=== PATIENT | male | born 1970 | race Caucasian/White ===

== ENCOUNTER 2025-01-03 09:18 | Day surgery (SDC) | payer SELFPAY ==
[2025-01-03] VITALS (9 sets, daily range): BP systolic 96–129; BP diastolic 45–72; PULSE 40–94; RESP 16–20; TEMP 36.1–36.6; O2SAT 93–100; BMI 31.6
--- NOTE | 2025-01-03 09:48 | EKG12_ITS ---
Test Reason : PRE OP Blood Pressure : */* mmHG Vent. Rate : 47 BPM Atrial Rate : 47 BPM P-R Int : 146 ms QRS Dur : 86 ms QT Int : 442 ms P-R-T Axes : 22 44 29 degrees QTcB Int : 391 ms Sinus bradycardia Otherwise normal ECG No previous ECGs available Confirmed by Jose Gallegos ([id number]), web editor YONATHAN FRANK ([id number]) on 01/04/2025 5:49:16 AM Referred By: Bulmaro Barlow Confirmed By: Jose Gallegos
--- NOTE | 2025-01-03 09:56 | PCM.PRE.AN2 ---
ASA Classification* ASA Classification ASA Classification: 2 Assessment & Plan Anesthesia* Anesthesia Assessment Anesthesia Assessment: Discussed sedation and/or anesthesia options, risks, benefits, and alternatives with patient/parents/legal guardian/POA. Questions invited. The patient/parents/legal guardian/POA seems to understand and agrees to proceed with anesthesia plan. Reviewed the physical assessment, medical history, allergy history and patient home medications list prior to surgery/procedure/anesthetic and documented any changes. Performed airway and anesthesia risk assessments. 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 When Was Last Pacemaker Check QUESTION #4 FULL TEXT: You/Your Family Experience fever (hyperthermia) with Anesthesia Last Oral Intake Last Oral intake: Last Oral Intake NPO since 20:30 01/03/25 09:51 Meds taken in AM with sips of water? Meds patient instructed to take am of surgery PONV PONV - employee relations director: PONV - employee relations director Female No 12/29/24 11:22 HX of Motion Sickness No 12/29/24 11:22 HX of N/V After Surgery No 12/29/24 11:22 Non-Smoker Yes 12/29/24 11:22 Duration of Surgery greater Yes 12/29/24 11:22 than 60 minutes Number of Risk Factors 2 12/29/24 11:22 PONV Score Moderate Risk 12/29/24 11:22 Height & Weight Height & Weight: Anesthesia: Height & Weight Height 5 ft 10 in 01/03/25 09:51 Weight: 99.8 kg 01/03/25 09:51 Body Mass Index (BMI) 31.6 01/03/25 09:51 Respiratory Assessment Respiratory Assessment - employee relations director: Respiratory Tract Infection Hx - employee relations director Hx Respiratory Tract Infection No 12/29/24 11:22 STOP Sleep Apnea STOP Sleep Apnea - employee relations director: STOP Sleep Apnea - employee relations director Hx Hypertension No 12/29/24 11:22 Hx Sleep Apnea No 12/29/24 11:22 CPAP BIPAP Do you snore loudly (louder Yes 12/29/24 11:22 than talking or can be heard Do you often feel tired/ No 12/29/24 11:22 fatigued/ sleepy during daytime? Has anyone observed you stop No 12/29/24 11:22 breathing during sleep? STOP Results Negative 12/29/24 11:22 QUESTION #5 FULL TEXT : Do you snore loudly (louder than talking or can be heard through closed doors)? 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 Specify any problems Hx of Preganancy in last 3 N/A 12/29/24 11:22 Months Nurse Filling Out Transfusion DSCHRIBER 12/29/24 11:22 & Questions: Date: 12/29/24 12/29/24 11:22 Time: 11:24 12/29/24 11:22 Patient unable to answer at this time (ie. confused, unrespo /Reproduction History /Reproductive History - employee relations director: /Reproductive Hx- employee relations director Hx Now No 12/29/24 11:22 Gestational Age (in weeks): EDC: Hx Hx Para Hx Section SAB No 12/29/24 11:22 Active Medications Active Medications: Current Medications Generic Name Dose Route Start Last Admin Trade Name Vita PRN Reason Stop Dose Admin Cefazolin Sodium 2 gm/ Sodium 110 mls @ 200 mls/hr 01/03/25 11:00 Chloride IV 01/03/25 11:32 INTRAOP ONE Lactated Ringer's 1,000 mls @ 15 mls/hr 01/03/25 09:30 IV .Q48H BLAKE PFSH Medical History Wears glasses Broken teeth Anxiety Arthritis Back pain Syncope Non-smoker Inguinal hernia of left side without obstruction or gangrene Depression Obesity Home Medications ?Medication ?Instructions ?Recorded ?Last Taken ?Type REPLENIX 2 tab PO DAILY 12/29/24 Unknown History SEISMIC 6 1 packet PO DAILY 12/29/24 Unknown History beta-sitosterol 125 mg-vit D3 10 2 tab PO DAILY 12/29/24 Unknown History zzs-ejlzwqgo-gelhpcydi 250 mg tablet (Prostate Max Plus) fluoxetine 20 mg capsule 40 mg PO DAILY 12/29/24 Unknown History vitamin C 500 mg-multivitamin with 2 tab PO QDAY 12/29/24 Unknown History minerals chewable tablet (Emergen-C) Allergy/AdvReac Type Severity Reaction Status Date / Time No Known Allergies Allergy Verified 01/03/25 09:50 Family History Other Arthritis Surgical History Hx of right knee surgery History of knee surgery Social History Smoking Status: Never smoker Review of Systems (Anesthesia) ROS Narrative System reviewed and no additional complaints, except as documented.
[2025-01-03] MEDS: Lactated Ringers 1,000 ML 15 ML IV (09:59)
--- NOTE | 2025-01-03 10:13 | HP.PCM_ITS ---
History and Physical Date of Admission: 01/03/25 Intake Vital Signs 12/24/2507:35 Height 5 ft 10 in Weight: 224 lb BMI 32.1 BP 115/74 Blood Pressure Location Rt brachial Position Sitting Respiration 18 Pulse 53 L Pulse Source Monitor Temp 98.0 F Temp Source Temporal Intake Visit Reasons: SELF PAY-LEFT INGUINAL HERNIA Chief Complaint: Possible Left Inguinal Hernia Glacing Machine Tender Required: No Is patient in pain?: No Allergies No Known Allergies Allergy (Unverified 12/23/24 08:54) Medications ?Medication ?Instructions ?Recorded ?Confirmed ?Type fluoxetine 40 mg capsule 40 mg PO QDAY 12/23/24 12/23/24 History Have you fallen in the past year?: No PFSH Medical History (Updated 12/23/24 @ 09:[address] Bulmaro Barlow MD) Inguinal hernia of left side without obstruction or gangrene Depression Obesity Hypertension Surgical History (Updated 12/23/24 @ 08:52 by Nyasia Hawkins) History of knee surgery Family History (Updated 12/23/24 @ 08:53 by Nyasia Hawkins) Other Arthritis HPI HPI HPI: Patient is a 54-year-old male with left inguinal hernia. The patient reports this has been like this for about 2 years. He is able to push it back in. He denies nausea or vomiting or fevers or chills. He denies any symptoms on the opposite side. ROS General General: No weight change, appetite, fatigue, colon cancer, breast cancer or weakness HEENT HEENT: No difficulty swallowing, eye injury, eye surgery, swollen glands or hoarseness Endo Endocrine: No thyroid disease, diabetes mellitus, thyroid cancer, Hair loss, heat intolerance or cold intolerance Skin Skin: No rash or changing moles Breast Breast: No left breast lump, right breast lump, nipple discharge, breast pain, abnormal mammogram, abnormal US or breast enlargement Musc Musculoskeletal: Yes back problems and arthritis; No rheumatoid arthritis, gout or joint pain Cardio Cardiovascular: No murmur, pacemaker, heart disease, atrial fibrillation, high blood pressure, heart attack, heart stent, palpitations, shortness of breath with exertion or chest pain Psych Psychiatric: Yes depression; No anxiety or hearing voices Resp Respiratory: No shortness of breath, No sleep apnea, No cough, No COPD, No asthma, No emphysema and No wheezing Gastro Gastrointestinal: No abdominal pain, No nausea or vomiting, No diarrhea, No constipation, No blood in stool, No acid reflux, No hemorrhoids, No ulcers, No gallbladder problem and No black,tarry stools Carlos Hematologic: No blood thinners, No blood disorders, No bleeding, No anemia and No blood clots Neuro Neurologic: No system reviewed and no additional complaints, except as documented, No as per HPI, No abnormal gait, No abnormal hearing, No abnormal movements, No abnormal speech, No behavioral changes, No burning sensations, No confusion, No convulsions, No disequilibrium, No dizziness, No localized weakness, No frequent falls, No headache(s), No lack of coordination, No loss of vision, No memory loss, Yes numbness, No other visual disturbances, No radicular pain, No restless legs, No sensory deficit, No syncope, Yes tingling, No tremor(s), No weakness and No other Exam Const General: cooperative Orientation: alert and oriented x3 HENMT Head: normal to inspection Neck Neck: normal visual inspection and full ROM Chest Chest palpation & inspection: normal inspection of the chest Resp Effort & Inspection: normal respiratory effort Auscultation: clear to auscultation bilaterally Cardio Rate: regular rate Rhythm: regular rhythm GI Inspection: non-distended Palpation: soft, hernia indirect inguinal on the left and nontender Skin General: no rashes or lesions noted Neuro General: patient alert and patient oriented x3 Extrem General: full ROM Psych Appearance: grossly normal Mental Status: mental status grossly normal Assessment and Plan Assessment and Plan (1) Inguinal hernia of left side without obstruction or gangrene: Status: Acute Plan: I discussed robotic assisted laparoscopic left inguinal hernia repair with mesh. I discussed the procedure in detail. I discussed the risks including but not limited to bleeding, infection, chronic groin pain, injury to underlying organ such as the bowel, bladder, blood supply to the testicle. Patient understands the risks and is willing to proceed. Bulmaro Barlow MD Pager: [facility] [address] [place] [address], [address] [place] [address] Office: I have examined the patient and the H&P has been reviewed. There are no clinical changes since date of exam.
[2025-01-03] MEDS: Lactated Ringers 1,000 ML 1000 ML IV (10:44)
[2025-01-03] MEDS: Midazolam 2 MG/2 ML Syringe IV (10:44)
[2025-01-03] MEDS: Cefazolin 1 GM/5 ML Vial 2 GM IV (10:50)
[2025-01-03] MEDS: Lidocaine 1% (5 ml sdv) 5 ML Vial IV (10:54)
[2025-01-03] MEDS: fentaNYL 100 MCG/2 ML Ampul IV (10:54)
--- OUTSIDE RECORDS SUMMARY | 2025-01-03 11:37 | XMS RPT_ITS | CCD ---
Author Organization [facility] Care Team Providers Care Installment Agent Name Role Phone WINDY JEREZ Unavailable Unavaila ble WINDY JEREZ A Unavailable Unavaila ble HARPAL YANG DC Attending Unavailable HARPAL YANG DC Primary Care Unavailable HARPAL YANG DC Admitting Unavailable Clement ENGINEERING PROGRAM ANALYST-C, Rosalai Brown Primary Care Provider Clement ENGINEERING PROGRAM ANALYST-C, Rosalia Brown Referring Provider [phone] Yen ROBERTS, Dr. Chamberlain Attending Provider Bulmaro Barlow Attending Unavailable Clement ENGINEERING PROGRAM ANALYST, Rosalia Brown Referring Unavaildalia e Clement ARMIJO, Rosalia Brown Primary Care Unavaildalia e Bulmaro Barlow Attending Unavailable Clement ARMIJO, Rosaliagokul Brown Primary Care Unavaildalia e Medications Current Medications Medication Drug Class(es) Dates Sig (Normalized) Sig (Original) FLUoxetine 40 mg oral capsule (1 source) Serotonin Reuptake Inhibitor Start: 12-23-2024 take 1 capsule by mouth once daily Fluoxetine 40 mg capsule Active 40 mg PO daily December 23, 2024 12:00am Problems Active Problems Problem Classification Problem Date Documented Da te Episodic/Chronic Unclassified (1 source) Unknown / UNK(Unknown) Onset: 01-27-2018 Past or Other Problems Problem Classification Problem Date Documented Da te Episodic/Chronic Unclassified (1 source) LEFT HAND SWELLING WITH REDNESS Onset: 01-27-2018 Results Test Name Value Interpretation Reference Range Facil ity Surgery Visit Reporton 12-23 Surgery Visit Report [facility] [address] [place], [place] [id number] OFFICE VISIT Date of Service: 12/23/24 MR#: [id number] Acct: [id number] Name: MELANIE MATTHEW Rep #: [id number] : 1970 Provider: Dr. Bulmaro hermosillo MD Age/Sex: 54/M Location: [facility] Status: Signed Intake Vital Signs 12/23/24 08:35 Height 5 ft 10 in Weight: 224 lb BMI 32.1 BP 115/74 Blood Pressure Location Rt brachial Position Sitting Respiration 18 Pulse 53 L Pulse Source Monitor Temp 98.0 F Temp Source Temporal Intake Visit Reasons: SELF PAY-LEFT INGUINAL HERNIA Chief Complaint: Possible Left Inguinal Hernia Mammal Control Agent Required: No Is patient in pain?: No Allergies No Known Allergies Allergy (Unverified 12/23/24 08:54) Medications ???Medication ???Instructions ???Recorded ???Confirmed ???Type fluoxetine 40 mg capsule 40 mg PO QDAY 12/23/24 12/23/24 Hi story Have you fallen in the past year?: No PFSH Medical History (Updated 12/23/24 @ 09:[address] Bulmaro Barlow MD) Inguinal hernia of left side without obstruction or gangrene Depression Obesity Hypertension Surgical History (Updated 12/23/24 @ 08:52 by Nyasia Hawkins) History of knee surgery Family History (Updated 12/23/24 @ 08:53 by Nyasia Hawkins) Other Arthritis HPI HPI HPI: Patient is a 54-year-old male with left inguinal hernia. The patient reports this has been like this for about 2 years. He is able to push it back in. He denies nausea or vomiting or fevers or chills. He denies any symptoms on the opposite side. ROS General General: No weight change, appetite, fatigue, colon cancer, breast cancer or weakness HEENT HEENT: No difficulty swallowing, eye injury, eye surgery, swollen glands or hoarseness Endo Endocrine: No thyroid disease, diabetes mellitus, thyroid cancer, Hair loss, heat intolerance or cold intolerance Skin Skin: No rash or changing moles Breast Breast: No left breast lump, right breast lump, nipple discharge, breast pain, abnormal mammogram, abnormal US or breast enlargement Musc Musculoskeletal: Yes back problems and arthritis; No rheumatoid arthritis, gout or joint pain Cardio Cardiovascular: No murmur, pacemaker, heart disease, atrial fibrillation, high blood pressure, heart attack, heart stent, palpitations, shortness of breath with exertion or chest pain Psych Psychiatric: Yes depression; No anxiety or hearing voices Resp Respiratory: No shortness of breath, No sleep apnea, No cough, No COPD, No asthma, No emphysema and No wheezing Gastro Gastrointestinal: No abdominal pain, No nausea or vomiting, No diarrhea, No constipation, No blood in stool, No acid reflux, No hemorrhoids, No ulcers, No gallbladder problem and No black,tarry stools Carlos Hematologic: No blood thinners, No blood disorders, No bleeding, No anemia and No blood clots Neuro Neurologic: No system reviewed and no additional complaints, except as documented, No as per HPI, No abnormal gait, No abnormal hearing, No abnormal movements, No abnormal speech, No behavioral changes, No burning sensations, No confusion, No convulsions, No disequilibrium, No dizziness, No localized weakness, No frequent falls, No headache(s), No lack of coordination, No loss of vision, No memory loss, Yes numbness, No other visual disturbances, No radicular pain, No restless legs, No sensory deficit, No syncope, Yes tingling, No tremor(s), No weakness and No other Exam Const General: cooperative Orientation: alert and oriented x3 [facility] Head: normal to inspection Neck Neck: normal visual inspection and full ROM Chest Chest palpation inspection: normal inspection of the chest Resp Effort Inspection: normal respiratory effort Auscultation: clear to auscultation bilaterally Cardio Rate: regular rate Rhythm: regular rhythm GI Inspection: non-distended Palpation: soft, hernia indirect inguinal on the left and nontender Skin General: no rashes or lesions noted Neuro General: patient alert and patient oriented x3 Extrem General: full ROM Psych Appearance: grossly normal Mental Status: mental status grossly normal Assessment and Plan Assessment and Plan (1) Inguinal hernia of left side without obstruction or gangrene: Status: Acute Plan: I discussed robotic assisted laparoscopic left inguinal hernia repair with mesh. I discussed the procedure in detail. I discussed the risks including but not limited to bleeding, infection, chronic groin pain, injury to underlying organ such as the bowel, bladder, blood supply to the testicle. Patient understands the risks and is willing to proceed. Bulmaro Barlow MD Pager: [facility] [address] [place] [address], [address] (more content not included)... Normal [facility] MR LUMBAR SP WO CONTRASTon 0 07-09-2024 MR LUMBAR SP WO CONTRAST [place] [id number] [place] [address] Patient: MELANIE MATTHEW Phone#: : 1970 Age: 54 Gender: M Pt. Type: Out Account: [id number] Location: Ordering: HRAPAL SEGOVIASARAH Exam Date: 07/09/2024/13:02 Family Phys: Charge Code: [id number] Physician: [place] Order #: [id number] Dose#: PROCEDURE: MRI LUMBAR SPINE WITHOUT CONTRAST COMPARISON: None. INDICATIONS: Low back pain TECHNIQUE: A variety of imaging planes and parameters were utilized for visualization of suspected pathology. FINDINGS: PARASPINAL AREA: Normal with no visible mass. Multiple cystic foci at the renal pelvis are present consistent with peripelvic cysts. BONES: No fracture, pars defect, or osseous lesion. CORD/CAUDA EQUINA: Normal caliber, contour, and signal intensity. LUMBAR DISC LEVELS: Mild broad-based bulge is present to the left of midline at the T12-L1 level. L1-L2: No significant disc/facet abnormality, spinal stenosis, or foraminal stenosis. L2-L3: Broad-based dorsal disc bulge is present. There is mild narrowing of the right neural foramen. Bright signal dorsally is consistent with annular rupture. There is mild narrowing of the left neural foramen. The spinal canal is normal in caliber. L3-L4: Broad-based annular disc bulging is present more so to the right. There is moderate right foraminal narrowing. There is mild left foraminal narrowing. The spinal canal is patent. L4-L5: No significant disc/facet abnormality, spinal stenosis, or foraminal stenosis. L5-S1: Broad-based central bulge is present. There is mild right foraminal narrowing. There is moderate left foraminal narrowing. CONCLUSION: 1. Peripelvic cysts are present. 2. Broad-based disc bulging is present to the left of midline at T12-L1. 3. Broad-based disc bulging is present greater to the right. Dictated by: Lina Arriaga MD on 07/09/2024 at 16:41 Approved by: Lina rAriaga MD on 07/09/2024 at 16:48 Normal [facility] FCHAND 3 VIEWSon 01-27-2018 FCHAND [address] [id number]: MELANIE MATTHEW LPhys: WINDY JEREZ C.N.P.: [birth year] Age: 47 Sex: MAcct: [id number] Loc: FCExam Date: 01/27/18 Status: REG POVRadiology No.: [id number] Number: [id number] # [id number] [facility] / FCHAND 3 VIEWS LTEXAM: Left hand 3 views 01/27/2018INDICATION: Swelling with redness, possible foreign bodyCOMPARISON: NoneFINDINGS: Skin marker has been placed at the site of clinical concern, palmaraspect of hand, at metacarpal level. There is no acute fracture ordislocation. There is no soft tissue foreign body or gas. There is chronicirregularity of the tuft of third distal phalanx.IMPRESSION: No radiopaque foreign body identified.Professional interpretation provided by [facility]60.Thank you for this referral.< >Reported By: DEBBY CANELA M.D.Signed In NovaPro By: DEBBY CANELA M.D. << Signature on File>> Reported By: DEBBY CANELA M.D. Signed By: DEBBY CANELA M.D.Tests performed at:[address] [phone] [facility] Vital Signs Date Time Vital Sign Value Performing Clinician Aly gonzalez 12-23-2024 08:35-0400 Body height 177.8 cm Rosalia OROURKE Work Phone: [facility] 12-23-2024 08:35-0400 Body mass index (BMI) [Ratio] 32.1 kg/m2 Rosalia OROURKE Work Phone: [facility] 12-23-2024 08:35-0400 Body temperature 98 [degF] Rsoalia Vaughan ENGINEERING PROGRAM ANALYST-C Work Phone: [facility] 12-23-2024 08:35-0400 Body weight 101.6 kg Rosalia Vaughan ENGINEERING PROGRAM ANALYST-C Work Phone: [facility] 12-23-2024 08:35-0400 Diastolic blood pressure 74 mm[Hg] Rosalia Vaughan ENGINEERING PROGRAM ANALYST-C Work Phone: [facility] 12-23-2024 08:35-0400 Heart rate 53 /min Rosalia Vaughan ENGINEERING PROGRAM ANALYST-C Work Phone: [facility] 12-23-2024 08:35-0400 Respiratory rate 18 /min Rosalia Vaughan ENGINEERING PROGRAM ANALYST-C Work Phone: [facility] 12-23-2024 08:35-0400 Systolic blood pressure 115 mm[Hg] Rosalia Vaughan ENGINEERING PROGRAM ANALYST-C Work Phone: [facility] Encounters Encounter Date Encounter Type Care Provider Facility Start: 01-03-2025 ambulatory Bulmaro Lu lity:[facility] Start: 12-23-2024 End: 12-23-[address] Bulmaro Barlow MD -[facility] Work Phone: Start: 12-23-2024 End: 12-23-2024 ambulatory Rosalia Vaughan ENGINEERING PROGRAM ANALYST-C Work Phone: -[facility] Start: 07-09-2024 End: 07-09-2024 ambulatory HARPAL DAVIS [facility] Start: 01-27-2018 Patient encounter -RAJI BURCIAGA Facility:[facility] Payers Date Payer Category Payer Self-pay 1970 Unknown [id number] Self-pay [id number] Unknown [id number] Unknown Unknown [id number] Unknown [id number] [id number] Social History Date Type Detail Facility Tobacco smoking stat us NHIS Unknown if ever smoked [facility] Work Phone: Start: 1970 [facility] Evaluation note Note Date & Type Note Facility Evaluation note No assessment information availa ble [facility] Work Phone: Reason for referral (narrative) Note Date & Type Note Facility Reason for referral (narrative) No reason for referral information available [facility] Work Phone: Summary Purpose Family History No Family History Records Found Relationship Condition Age at Onset Recorded Date/T kami Not Specified Arthritis Unknown Advance Directives No Advanced Directives Records FoundNo Advanced Directives Records FoundNo Advanced Directives Records Found Chief Complaint and Reason for Visit Chief Complaint Admit Date SELF PAY-LEFT INGUINAL HERNIA December 23, 2024 8:31am Additional Source Comments (unrecognized sect ion and content) No Status Records FoundNo Status Records FoundNo Status Records Found INFORMATION SOURCE (unrecogn ized section and content) DATE CREATED AUTHOR 02/21/2018 [facility] DATE CREATED AUTHOR AUTHOR'S ORGANIZ ATION 07/12/2024 [facility] DATE CREATED AUTHOR AUTHOR'S ORGANIZ ATION 12/31/2024 [facility] Care Teams (unrecognized sec tion and content) Team Status: Active Member Role/Relationship Status Dates Rosalia Vaughan NP, ENGINEERING PROGRAM ANALYST-C Primary Care Provider Activ e Team Status: Inactive Member Role/Relationship Status Dates Rosalia Vaughan NP, ENGINEERING PROGRAM ANALYST-C Primary Care Provider Activ e Start: December 23, 2024 End: December 23, 2024 Rosalia Vaughan NP, ENGINEERING PROGRAM ANALYST-C Referring Provider Active Start: December 23, 2024 End: December 23, 2024 Dr. Bulmaro Barlow MD Attending Provider Active Start: December 23, 2024 End: December 23, 2024 Goals (unrecognized section and content) Goals may be documented in a n alternate section FOR RECORDS PERTAINING TO PATIENTS WHO ARE OR HAVE BEEN ENROLLED IN A CHEMICAL DEPENDENCY/SUBSTANCEABUSE PROGRAM, SOME INFORMATION MAY BE OMITTED. This clinical summary was aggregated from multiple sources. Caution should be exercised in using it in the provision of clinical care. This summary normalizes information from multiple sources, and as a consequence, information in this document may materially change the coding, format and clinical context of patient data. In addition, data may be omitted in some cases. CLINICAL DECISIONS SHOULD BE BASED ON THE PRIMARY CLINICAL RECORDS. [facility] [employer] [facility]. provides no warranty or guarantee of the accuracy or completeness of information in this document.
--- NOTE | 2025-01-03 11:45 | OP.PCM_ITS ---
Operative Report (Standard) Operative Information Date of Procedure: 01/03/25 Pre-Operative Diagnosis: Left inguinal hernia Post-Operative Diagnosis: Left inguinal hernia Surgery/Procedure Performed: Robotic assisted laparoscopic left inguinal hernia repair with mesh bill poster installer: Yes Control Panel Assembler: Tooite Chavarria Tasks completed by first mate: Opening & closing Type of Anesthesia: General/Regional RN Documented Start/Stop Times: Operation Date: 01/03/25 11:00 Case Time Into Pre-Op 01/03/25 09:28 Out of Pre-Op 01/03/25 10:39 Anesthesia Start 01/03/25 10:44 Into Room 01/03/25 10:44 Procedure Start 01/03/25 11:07 Procedure Start Time: 11:07 Procedure Stop Time: 11:52 Select all DRAINS/GRAFTS/IMPLANTS that apply: Implanted device Implanted device details: ProGrip mesh Estimated Blood Loss: 5 Specimen collected: No Description of surgery: Patient was brought back to the operating room and general anesthesia was induced. The abdomen was prepped and draped in usual sterile fashion. Incision was made superior to the umbilicus and deepened to the fascia which was grasped and elevated. A Veress needle was placed into the abdomen and a drop test was performed. The abdomen was then insufflated to 15 mmHg and the Veress needle was removed. A port was placed. The abdomen was inspected for injuries from entry and there were none. Patient was placed in steep Trendelenburg position. The patient had a left inguinal hernia containing some colon. There was no hernia on the right. Under direct visualization an 8 mm port was placed in the left lateral sidewall as well as the right lateral sidewall. The robot was then docked. Using electrocautery scissors the peritoneum was incised in the left lower quadrant and dissection was carried inferiorly until the hernia sac was encountered. The hernia sac was dissected free from surrounding attachments using electrocautery dissection until it was freed. Dissection was carried posteriorly. Next a ProGrip mesh was unfolded over the left inguinal region completely covering the hernia defect with good overlap. Next the peritoneum was reapproximated using a running 3 oh V-Loc suture completely covering the mesh. The robot was then undocked and the instruments and ports were removed. The incisions were injected with local anesthetic and closed with interrupted 4- 0 Monocryl sutures. Steri-Strips and bandages were applied. Patient was awoken and taken to PACU in stable condition and tolerated the procedure well. Scrotum was checked at the end of the case and contained both testicles. Surgical Findings: Indirect left inguinal hernia Complications Complications: No Admit VTE Documentation VTE Mechan Device Prophylaxis: SCD's
[2025-01-03] MEDS: Ketorolac 30 MG/ML Syringe IV (11:50)
--- NOTE | 2025-01-03 11:51 | DCINST_ITS ---
Discharge Instructions Procedure Hernia Diet Discharge Diet: Light diet - advance as tolerated Activity Discharge Activity: May Not Drive (for 2-3 days or while taking narcotic pain meds.) and May Shower (with the bandage in place 1-2 days after surgery.) Lifting Restrictions: 20 pounds for 4 weeks. Additional Activity Instructions:: Climbing stairs is fine, walking is encouraged. Sitting in bed may be uncomfortable. Sitting up using your lateral muscles (sitting up sideways) is usually more comfortable. Do not drive, work heavy equipment of sign legal documents for 24 hours. If your hernia repair was an ingunial repair, you may have scrotal swelling, an ice pack and/or athletic support can provide more comfort. Pain medications may cause nausea, you should typically eat light foods as you take your pain medications. Pain medications may also cause constipation. If you have difficulty with this, discuss with your doctor. Alternate ibuprofen and Tylenol for pain control, oxycodone for breakthrough pain Dressing / Incision Call your doctor if your incision/area has: Continuous Slow Oozing, Sudden Increased Bleeding, Increased Pain/ Swelling, Increased Redness and Foul Smelling Discharge Call your doctor if you observe: Fever of 101 or Higher Suture Line Care: Avoid Pulling/Pushing and Avoid Pinching/Bending Remove Dressing in: 2 days (Remove clear bandages in 2 days, remove Steri-Strips in 7 to 10 days.) Follow Up Care Please Follow Up With: Bulmaro Barlow MD When: Please call to schedule 2 week follow up appointment. [phone] Test Results: Test results from this visit will be discussed in further detail at your follow- up appointment, if applicable. Discharge Plan Admission Attending Provider: Bulmaro Barlow Primary Care Provider: Jay Rios Instructions Print Language: Sierra Leonean Discharge Orders/Prescriptions Prescriptions: New oxycodone 5 mg Tablet 5 - 10 mg PO Q4H PRN PRN (Reason: Pain Score 4-10) 5 Days Qty: 14 0RF No Action fluoxetine 20 mg capsule 40 mg PO DAILY REPLENIX 2 tab PO DAILY Prostate Max Plus 125 mg-10 mcg- 250 mg tablet 2 tab PO DAILY Emergen-C 500 mg tablet,chewable 2 tab PO QDAY SEISMIC 6 1 packet PO DAILY Referrals / Follow Up: Jay Rios, [Primary Care Provider] - Disposition Disposition (needs filled in before D/C Order can be placed): Home, Self Care
--- NOTE | 2025-01-03 12:04 | PCM.POST.ANE ---
Anesthesia: Postop Eval I Current Vital Signs Temperature: 97.9 F Pulse Rate: 94 Blood Pressure: 127/72 Respiratory Rate: 20 Pulse Ox: 99 Oxygen Delivery Method: Room Air Assessment Airway patent: Yes Spontaneous unlabored respirations: Yes Mental status: Awake and Calm nausea: No Vomiting: No Anesthesia Complication: No Fluid Hydration Crystalloid volume administer (ml): 1,100 Total IV fluid infused: 1,100 Progress Note Anesthesia document: Postop Eval 1 completed: Yes
--- NOTE | 2025-01-03 12:13 | POSTOPAN2_ITS ---
Anesthesia Postop Eval I Sum Postop Eval Completion status Anesthesia document: Postop Eval 1 completed: Yes Anesthesia Postop Eval I Summary Anesthesia Postop Eval I Summary: Anesthesia Postop Eval I: Assessment Summary Airway patent Yes 01/03/25 12:05 ASSISTANT MANAGER AIRSIDE OPERATIONS.TDOB Spontaneous unlabored Yes 01/03/25 12:05 ASSISTANT MANAGER AIRSIDE OPERATIONS.TDOB respirations Mental status Awake,Calm 01/03/25 12:05 ASSISTANT MANAGER AIRSIDE OPERATIONS.TDOB nausea No 01/03/25 12:05 ASSISTANT MANAGER AIRSIDE OPERATIONS.TDOB Vomiting No 01/03/25 12:05 ASSISTANT MANAGER AIRSIDE OPERATIONS.TDOB Anesthesia Postop Eval I: Fluid Summary Crystalloid volume administer 1,100 01/03/25 12:05 ASSISTANT MANAGER AIRSIDE OPERATIONS.TDOB (ml) Colloids volume administered ( ml) Blood Product volume administered (ml) Total IV fluid infused 1,100 01/03/25 12:05 ASSISTANT MANAGER AIRSIDE OPERATIONS.TDOB Anesthesia Postop Eval I: Summary Notes Anesthesia Complication No 01/03/25 12:05 ASSISTANT MANAGER AIRSIDE OPERATIONS.TDOB Anesthesia Complication Comment: Post-operative progress note Anesthesia: Postop Eval II Evaluation Mental status: Awake and Calm Pain Level: 2 nausea: No Vomiting: No
--- NOTE | 2025-01-03 12:13 | PCM.POSTANE2 ---
Anesthesia Postop Eval I Sum Postop Eval Completion status Anesthesia document: Postop Eval 1 completed: Yes Anesthesia Postop Eval I Summary Anesthesia Postop Eval I Summary: Anesthesia Postop Eval I: Assessment Summary Airway patent Yes 01/03/25 12:05 SOFTWARE FIRMWARE ENGINEER.TDOB Spontaneous unlabored Yes 01/03/25 12:05 SOFTWARE FIRMWARE ENGINEER.TDOB respirations Mental status Awake,Calm 01/03/25 12:05 SOFTWARE FIRMWARE ENGINEER.TDOB nausea No 01/03/25 12:05 SOFTWARE FIRMWARE ENGINEER.TDOB Vomiting No 01/03/25 12:05 SOFTWARE FIRMWARE ENGINEER.TDOB Anesthesia Postop Eval I: Fluid Summary Crystalloid volume administer 1,100 01/03/25 12:05 SOFTWARE FIRMWARE ENGINEER.TDOB (ml) Colloids volume administered ( ml) Blood Product volume administered (ml) Total IV fluid infused 1,100 01/03/25 12:05 SOFTWARE FIRMWARE ENGINEER.TDOB Anesthesia Postop Eval I: Summary Notes Anesthesia Complication No 01/03/25 12:05 SOFTWARE FIRMWARE ENGINEER.TDOB Anesthesia Complication Comment: Post-operative progress note Anesthesia: Postop Eval II Evaluation Mental status: Awake and Calm Pain Level: 2 nausea: No Vomiting: No
== END 2025-01-03 14:01 | disposition home or self-care (01) ==
LOC: SDC 09:27 → AC 09:32
PROVIDERS: PCP Family Medicine; Referring Provider Surgery; Visit Provider Surgery
PROC: 0YQ64ZZ Repair Left Inguinal Region, Percutaneous Endoscopic Approach (ICD-10-PCS; CPT 49650; principal; 2025-01-03 10:40)
DX: K40.90 Unilateral inguinal hernia, without obstruction or gangrene, not specified as recurrent (principal); I10 Essential (primary) hypertension
CPT/HCPCS: 49650; S2900; 00840; 93005; C1781; J2405